=== PATIENT | female | born 1975 | race Two or more races ===

== ENCOUNTER 2021-02-10 06:16 | Day surgery (SDC) | payer OTHER ==
[~2021-02-10 06:16] MED LIST: D3 + K2 DOTS 11 EACH PO; FLAX OIL1000 MG PO; FUSION PLUS CA1 EACH PO; MULTI VITAMIN1 EACH PO; PANADOL EXTRA500 MG PO; TRIPLE FLEX CA1 EACH PO
== END 2021-02-10 19:35 | disposition home or self-care (01) ==
LOC: CIR.AMB 06:16
PROVIDERS: ATTEND Plastic Surgery
DX: M62.08 Separation of muscle (nontraumatic), other site (principal); N62 Hypertrophy of breast; Z98.84 Bariatric surgery status; Z20.822 Contact with and (suspected) exposure to COVID-19; E65 Localized adiposity